=== PATIENT | male | born 1990 | race Asian ===

== ENCOUNTER 2020-06-15 17:30 | Emergency (ER) | payer SELFPAY ==
[~2020-06-15] VITALS: Ht 165.1 cm; Wt 59.0 kg
[2020-06-15 17:35] VITALS: BP 136/85
[2020-06-15] MEDS ORDERED: traMADol HCL 50 MG TAB PO ONE (21:00)
== END 2020-06-15 21:45 | disposition home or self-care (01) ==
LOC: ER 17:30
DX: S93.602A Unspecified sprain of left foot, initial encounter (principal); W22.8XXA Striking against or struck by other objects, initial encounter; Y93.89 Activity, other specified; Y92.89 Other specified places as the place of occurrence of the external cause; Y99.8 Other external cause status
CPT/HCPCS: 73630